=== PATIENT | female | born 1995 | race Caucasian/White ===

== ENCOUNTER 2017-06-23 15:44 | Outpatient (CLI) | payer BC ==
--- NOTE | 2017-06-23 16:55 | RAD ---
SACROILIAC JOINTS THREE VIEWS: 06/23/17 HISTORY: Low back pain. FINDINGS: Sacroiliac joint spaces are maintained. Sacral ala are intact. No aggressive osseous erosions are echo arent. IMPRESSION: Normal radiographic appearance of the sacroiliac joints. POS: [facility]
== END 2017-06-23 15:45 | disposition home or self-care (01) ==
LOC: SCSRAD 15:44
PROVIDERS: ATTEND Internal Medicine Rheumatology
DX: M54.89 Other dorsalgia (principal)
CPT/HCPCS: 72202

== ENCOUNTER 2017-06-30 17:30 | Emergency (ER) | payer BC ==
[2017-06-30 18:06] LABS: Bilirubin Negative (Negative); Blood, Urine Negative (Negative); Clarity Hazy (Clear); Glucose, Urine (Dipstick) Negative (Negative); Leukocyte Trace (Negative); Nitrite Negative (Negative); Protein, Urine (Dipstick) Negative (Neg-Trace); Specific Gravity, Urine 1.015 (1.005-1.030); Urobilinogen 0.2 mg/dL (0.2-1.0); pH, Urine 8.5 (5.0-9.0)
[2017-06-30 18:43] LABS: Bacteria/HPF 3+ HPF (None Seen); RBC/HPF None Seen HPF (0-3); WBC/HPF 0-3 HPF (0-3)
[2017-06-30] MEDS ORDERED: Ketorolac Tromethamine 30 MG/ML VIAL ONE (20:17)
[2017-06-30] MEDS ORDERED: Ondansetron HCl/PF 4 MG/2 ML Vial ONE (20:17)
[2017-06-30 20:26] LABS: BHCG - Serum Negative (NEGATIVE); Pregs Control Background? CLEAR/WHITE (CLR/WHITE); Pregs Control Bar Appear? YES (CONTROL BAR)
[2017-06-30 20:37] LABS: Anion Gap 17 mmol/L (10-20); BUN (Urea Nitrogen) 6 mg/dL (7.0-18.7); Calc. Creatinine Clearance 0 mL/min (70-130); Calcium 9.5 mg/dL (7.8-10.44); Carbon Dioxide 20 mmol/L (22-29); Chloride 107 mmol/L (98-107); Estimated GFR-MDRD Greater than 90; Glucose 91 mg/dL (70-105); Lipase 23 U/L (8-78); Potassium 4.8 mmol/L (3.5-5.1); Sodium 139 mmol/L (136-145)
[2017-06-30 20:47] LABS: ALT (SGPT) 35 U/L (8-55); AST (SGOT) 23 U/L (5-34); Albumin 4.3 g/dL (3.5-5.0); Alkaline Phosphatase 92 U/L (40-150); Bilirubin, Total 0.7 mg/dL (0.2-1.2); Globulin 2.6 g/dL (2.4-3.5); Protein, Total 6.9 g/dL (6.0-8.3)
--- NOTE | 2017-06-30 21:18 | RAD ---
ACUTE ABDOMINAL SERIES; 06/30/17 HISTORY: Diffuse abdominal pain with onset of symptoms one day ago. Diarrhea. CHEST X-RAY: Bipedicular screws and posterior rods transfix the thoracic spine. Cardiac silhouette and pulmonary v asculature are within normal limits. The lungs are clear. UPRIGHT AND SUPINE VIEWS OF THE ABDOMEN: No free intraperitoneal gas seen beneath the hemidiaphragms. There is a nonspecific bowel gas pattern . No suspicious calcifications are seen. There are lucent centered calcifications overlying the pelvi s bilaterally suggesting phleboliths. Osseous structures are intact aside from posterior rods and ped icular screw transfixing the thoracic and upper lumbar spine. IMPRESSION: Nonspecific bowel gas pattern. POS: [facility]
== END 2017-06-30 21:51 | disposition home or self-care (01) ==
LOC: SCSER 17:30
DX: R10.13 Epigastric pain (principal); E03.9 Hypothyroidism, unspecified; F32.9 Major depressive disorder, single episode, unspecified; F41.9 Anxiety disorder, unspecified; G47.00 Insomnia, unspecified; G43.909 Migraine, unspecified, not intractable, without status migrainosus; K58.9 Irritable bowel syndrome, unspecified; J45.909 Unspecified asthma, uncomplicated; Z79.899 Other long term (current) drug therapy
CPT/HCPCS: 74022; 80053; 81003; 81015; 83690; 84703; 87086; 96361; 96374; 96375; J1885; J2405

== ENCOUNTER 2017-07-17 09:07 | Outpatient (CLI) | payer BC ==
--- NOTE | 2017-07-17 10:35 | ULT ---
ABDOMEN ULTRASOUND: HISTORY: Abdominal pain. COMPARISON: None. TECHNIQUE: Utilizing a multihertz transducer, sonographic imaging of the abdomen is performed in the longitudina l and transverse plane. FINDINGS: The pancreas is obscured by bowel gas. Visualized aorta is unremarkable. Main portal vein is patent. Appropriate direction of flow. Liver has an overall increased echogenicity which may be due to hepatic steatosis or hepatocellular d isease. Subsequent evaluation for hepatic masses and intrahepatic biliary dilatation is limited. Contour of the hepatic margin is maintained. Common bile duct diameter is 0.4 cm. There is sludge within the lumen of the gallbladder. No evidence of gallbladder wall thickening or p ericholecystic fluid. Negative Arnold's sign. Kidneys have a normal cortical echotexture. Bilaterally, no hydronephrosis. The left kidney measure s 12.7 x 5.1 x 5.4 cm. The right kidney measures 4.8 x 4.9 x 10.7 cm. Spleen has a normal echotexture measuring 11.4 cm. IMPRESSION: Sludge within the lumen of the gallbladder. No sonographic evidence of cholelithiasis or cholecystit is. POS: [facility]
== END 2017-07-17 09:08 | disposition home or self-care (01) ==
LOC: ULT 09:07
PROVIDERS: ATTEND Internal Medicine
DX: R10.9 Unspecified abdominal pain (principal); R11.0 Nausea; Z87.19 Personal history of other diseases of the digestive system; K82.8 Other specified diseases of gallbladder
CPT/HCPCS: 76700

== ENCOUNTER 2017-08-17 07:24 | Outpatient (CLI) | payer BC ==
--- NOTE | 2017-08-17 14:07 | NM ---
NUCLEAR MEDICINE GASTRIC EMPTYING SCAN WITH MEAL: HISTORY: Abdominal pain, unspecified. Nausea. COMPARISON: None. TECHNIQUE: The patient was administered 2 mCi of Technetium 99m sulfur colloid orally in a standard egg mixture. FINDINGS: 13% emptying at 27 minutes. 42% emptying at 59 minutes. 80% emptying at 112 minutes. 98% emptying at 174 minutes. 98% emptying at 240 minutes. T-1/2 halftime is 70 minutes. IMPRESSION: As above. POS: [facility]
== END 2017-08-17 07:25 | disposition home or self-care (01) ==
LOC: NM 07:24
PROVIDERS: ATTEND Internal Medicine
DX: R11.0 Nausea (principal); R10.10 Upper abdominal pain, unspecified
CPT/HCPCS: 78264; A9541

== ENCOUNTER 2018-10-26 15:25 | Emergency (ER) | payer OTHER, BC ==
[2018-10-26 16:22] LABS: #Basophils 0.1 thou/uL (0.0-0.2); #Eosinphils 0.1 thou/uL (0.0-0.7); #Lymphocytes 2.5 thou/uL (1.20-3.40); #Monocytes 0.6 thou/uL (0.11-0.59); #Neutrophils 3.8 thou/uL (1.40-6.50); %Eosinophils 2.1 % (0.0-10.0); %Lymphocytes 35.6 % (21.0-51.0); %Monocytes 7.9 % (0.0-10.0); %Neutrophils 53.4 % (42.0-75.0); Hemoglobin 13.7 g/dL (12.0-16.0); Mean Corpuscular Hemoglobin 30.5 pg (27.0-31.0); Mean Corpuscular Volume 92.2 fL (78.0-98.0); Mean Platelet Volume 8.2 fL (7.4-10.4); Platelet Count 233 thou/uL (130-400); Red Blood Cell (RBC) Count 4.51 mill/uL (4.20-5.40)
[2018-10-26 17:17] LABS: BHCG - Serum Negative (NEGATIVE); Pregs Control Background? CLEAR/WHITE (CLR/WHITE); Pregs Control Bar Appear? YES (CONTROL BAR)
[2018-10-26 17:32] LABS: ALT (SGPT) 48 U/L (8-55); AST (SGOT) 25 U/L (5-34); Albumin 4.6 g/dL (3.5-5.0); Alkaline Phosphatase 86 U/L (40-150); Anion Gap 11 mmol/L (10-20); BUN (Urea Nitrogen) 7 mg/dL (7.0-18.7); Calc. Creatinine Clearance 0 mL/min (70-130); Calcium 9.5 mg/dL (7.8-10.44); Carbon Dioxide 25 mmol/L (22-29); Chloride 106 mmol/L (98-107); Estimated GFR-MDRD 86; Globulin 2.6 g/dL (2.4-3.5); Glucose 79 mg/dL (70-105); Lipase 22 U/L (8-78); Potassium 3.3 mmol/L (3.5-5.1); Protein, Total 7.2 g/dL (6.0-8.3); Sodium 139 mmol/L (136-145)
--- NOTE | 2018-10-26 18:21 | CT ---
CT Abdomen Pelvis W Con: 10/26/2018 4:34 PM CLINICAL INFORMATION: Rectal bleeding for 2 days COMPARISON: None. TECHNIQUE: Multiple contiguous axial images were obtained and a CT of the abdomen and pelvis with IV contrast. C oronal reformats were performed. FINDINGS: Lower Chest: within normal limits. Abdomen: Liver: within normal limits. Bile Ducts: Normal caliber. Gallbladder: No calcified gallstones. Normal caliber wall. Pancreas: within normal limits. Spleen: within normal limits. Adrenals: within normal limits. Kidneys: The patient has a horseshoe kidney. No calcifications are hydronephrosis are seen. Pelvis: Reproductive Organs: No pelvic masses. Ureters: within normal limits. Bladder: within normal limits. Peritoneum: No ascites or free air, no fluid collection. Bowel: Normal caliber. Normal appendix. Mesentery and Retroperitoneum: No enlarged mesenteric or retroperitoneal lymph nodes. Vessels: Normal. Abdominal Wall: within normal limits. Bones: Postsurgical changes in the spine produce streak artifact slightly limiting this exam. IMPRESSION: 1. No evidence of acute intraabdominal\pelvic abnormality. 2. Horseshoe kidney
--- NOTE | 2018-10-30 15:08 | EKG ---
Test Reason : Blood Pressure : / mmHG Vent. Rate : 076 BPM Atrial Rate : 076 BPM P-R Int : 158 ms QRS Dur : 098 ms QT Int : 388 ms P-R-T Axes : 025 029 027 degrees QTc Int : 436 ms Normal sinus rhythm with sinus arrhythmia Normal ECG Confirmed by MELISSA PELAYO ([id number]), school photograph editor KEELY JETER ([id number]) on 10/30/2018 3:08:28 PM Referred By: Confirmed By:MELISSA PELAYO
== END 2018-10-26 18:32 | disposition home or self-care (01) ==
LOC: ERS 15:25
DX: K62.5 Hemorrhage of anus and rectum (principal); R00.2 Palpitations; F41.9 Anxiety disorder, unspecified; F32.9 Major depressive disorder, single episode, unspecified; F90.9 Attention-deficit hyperactivity disorder, unspecified type
CPT/HCPCS: 36415; 74177; 80053; 82274; 83690; 84703; 85025; 93005

== ENCOUNTER 2018-11-16 00:37 | Emergency (ER) | payer OTHER, BC ==
[2018-11-16 01:16] LABS: #Eosinphils 0.1 thou/uL (0.0-0.7); #Lymphocytes 2.5 thou/uL (1.20-3.40); #Monocytes 0.5 thou/uL (0.11-0.59); #Neutrophils 3.9 thou/uL (1.40-6.50); %Basophils 0.2 % (0.0-1.0); %Eosinophils 1.8 % (0.0-10.0); %Monocytes 7.4 % (0.0-10.0); %Neutrophils 55.5 % (42.0-75.0); Hemoglobin 12.9 g/dL (12.0-16.0); Mean Corpuscular HGB CONC 34.4 g/dL (32.0-36.0); Mean Corpuscular Hemoglobin 31.6 pg (27.0-31.0); Mean Platelet Volume 8.2 fL (7.4-10.4); Platelet Count 205 thou/uL (130-400); RBC Distribution Width 10.8 % (11.5-14.5); Red Blood Cell (RBC) Count 4.07 mill/uL (4.20-5.40)
[2018-11-16 01:36] LABS: Acetaminophen Less than 6.0 mcg/mL (10.0-30.0); Alcohol Less than 10 mg/dL (Less than 10); Salicylate Less than 8.0 mg/dL (15.0-30.0)
[2018-11-16 01:38] LABS: ALT (SGPT) 48 U/L (8-55); AST (SGOT) 23 U/L (5-34); Albumin 4.3 g/dL (3.5-5.0); Alkaline Phosphatase 70 U/L (40-150); Anion Gap 14 mmol/L (10-20); BUN (Urea Nitrogen) 7 mg/dL (7.0-18.7); Bilirubin, Total 0.8 mg/dL (0.2-1.2); Calc. Creatinine Clearance 0 mL/min (70-130); Calcium 9.6 mg/dL (7.8-10.44); Carbon Dioxide 22 mmol/L (22-29); Chloride 109 mmol/L (98-107); Estimated GFR-MDRD 84; Globulin 2.3 g/dL (2.4-3.5); Glucose 124 mg/dL (70-105); Potassium 3.1 mmol/L (3.5-5.1); Protein, Total 6.6 g/dL (6.0-8.3); Sodium 142 mmol/L (136-145)
[2018-11-16 04:25] LABS: Bilirubin Negative (Negative); Blood, Urine Negative (Negative); Clarity CLEAR (Clear); Glucose, Urine (Dipstick) Negative (Negative); Leukocyte Negative (Negative); Nitrite Negative (Negative); Protein, Urine (Dipstick) Negative (Neg-Trace); Urobilinogen 0.2 mg/dL (0.2-1.0)
[2018-11-16 04:36] LABS: Pregnancy Test - Urine (BHCG) Negative (Negative); Pregu Control Background? CLEAR/WHITE (CLR/WHITE); Pregu Control Bar Appear? YES (CONTROL BAR); Specific Gravity 1.005 (1.002-1.036)
[2018-11-16 05:12] LABS: Amphetamine Not Detected (NotDetected); Benzodiazepine Screen Not Detected (NotDetected); Cocaine Metabolite Screen Not Detected (NotDetected); Medtox Reader # READER 1; Methamphetamine Not Detected (NotDetected); Opiate Screen Not Detected (NotDetected); Phencyclidine (PCP) Not Detected (NotDetected); THC/Cannabinoid Screen Not Detected (NotDetected)
[2018-11-16 05:13] LABS: Barbiturates Screen Not Detected (NotDetected); Medtox Control Line Valid? VALID (VALID); Methadone Not Detected (NotDetected); Oxycodone Screen Not Detected (NotDetected); Tricyclic Screen Not Detected (NotDetected)
[2018-11-16] MEDS ORDERED: Potassium Chloride 20 MEQ TAB ONE (05:38)
[2018-11-16 13:03] LABS: ALT (SGPT) 69 U/L (8-55); AST (SGOT) 44 U/L (5-34); Albumin 4.6 g/dL (3.5-5.0); Alkaline Phosphatase 80 U/L (40-150); Anion Gap 11 mmol/L (10-20); BUN (Urea Nitrogen) 5 mg/dL (7.0-18.7); Bilirubin, Total 0.8 mg/dL (0.2-1.2); Calc. Creatinine Clearance 0 mL/min (70-130); Calcium 9.7 mg/dL (7.8-10.44); Carbon Dioxide 25 mmol/L (22-29); Chloride 111 mmol/L (98-107); Estimated GFR-MDRD 83; Globulin 2.5 g/dL (2.4-3.5); Glucose 91 mg/dL (70-105); Potassium 4.2 mmol/L (3.5-5.1); Protein, Total 7.1 g/dL (6.0-8.3); Sodium 143 mmol/L (136-145)
== END 2018-11-16 16:30 ==
LOC: ERS 00:37
DX: T43.592A Poisoning by other antipsychotics and neuroleptics, intentional self-harm, initial encounter (principal); F32.9 Major depressive disorder, single episode, unspecified; E03.9 Hypothyroidism, unspecified; J45.909 Unspecified asthma, uncomplicated; G47.00 Insomnia, unspecified; G43.909 Migraine, unspecified, not intractable, without status migrainosus; F41.9 Anxiety disorder, unspecified; F90.9 Attention-deficit hyperactivity disorder, unspecified type; Z79.899 Other long term (current) drug therapy
CPT/HCPCS: 36415; 80053; 80306; 80307; 81003; 81025; 84443; 85025; 93005